=== PATIENT | female | born 1970 | race Two or more races ===

== ENCOUNTER 2020-03-14 12:47 | Outpatient (REF) | payer MEDICAID, SELFPAY ==
--- NOTE | 2020-03-14 | MM_ITS ---
EXAMINATION: BONE DENSITOMETRY CLINICAL INDICATION: Screening. COMPARISON: This is the patient's baseline examination. TECHNIQUE: Using a [employer] DXA System (software version: 13.1) manufactured by [employer], dual-energy x-ray absorptiometry was performed of the lumbar spine and right hip. History of left femur fracture. The images are of good technical quality. Summary results are attached. FINDINGS: AP SPINE L1-L4: BMD 1.375 g/cm2, Z-score 2.0, T-score 1.6, normal. RIGHT FEMUR, NECK: BMD 1.189 g/cm2, Z-score 1.8, T-score 1.1, normal. RIGHT FEMUR, TOTAL: BMD 1.136 g/cm2, Z-score 1.4, T-score 1.0, normal. IDENTIFIED RISK FACTORS: History of fracture (adult), tobacco use (current smoker). HISTORY OF FRACTURE: Femur. MEDICATIONS: None listed. MM/XR DEXA axial skeleton IMPRESSION: 1. DIAGNOSIS: Normal bone density based on the lowest T-score value of 1.0 in the total femur applying World Health Organization criteria. 2. 10-YEAR FRACTURE RISK PREDICTION, FRAX: Major osteoporotic fracture (clinical spine, forearm, hip or shoulder) 3.1%. Hip fracture 0.0%. 3. Treatment Recommendations: NOF guidelines recommend consideration for treatment in postmenopausal women and men age 50 and older presenting with the following: -A hip or vertebral (clinical or morphometric) fracture. -T-score less than or equal to -2.5 at the femoral neck or spine after appropriate evaluation to exclude secondary causes. -Low bone mass at the hip or spine and a 10-year fracture probability by FRAX of greater than or equal to 3% for hip fracture or greater than or equal to 20% for major osteoporotic fracture based on the [place] adapted WHO algorithm. 4. Other Recommendations: All treatment decisions require clinical judgment and consideration of individual patient factors, including patient preferences, comorbidities, previous drug use, risk factors not captured in the FRAX model (e.g. frailty, falls, vitamin D deficiency, increased bone turnover, interval significant decline in bone density) and possible under or overestimation of fracture risk by FRAX. FUTURE SCAN RECOMMENDATION: People with diagnosed cases of osteoporosis or at high risk for fracture should have regular bone mineral density tests. For patients eligible for Medicare, routine testing is allowed once every 2 years. The testing frequency can be increased to one year for patients who have rapidly progressing disease, those who are receiving or discontinuing medical therapy to restore bone mass, or have additional risk factors.
== END 2020-03-14 12:48 | disposition home or self-care (01) ==
LOC: HO.MAMMO 12:47
PROVIDERS: PCP Student in an Organized Health Care Education/Training Program; Visit Provider Student in an Organized Health Care Education/Training Program
DX: E55.9 Vitamin D deficiency, unspecified (principal)
CPT/HCPCS: 77080

== ENCOUNTER → 2020-04-03 14:33 | Outpatient (BNVA) | payer MEDICAID, SELFPAY | PROVIDERS: PCP Student in an Organized Health Care Education/Training Program; Visit Provider Surgery | DX: K64.4 Residual hemorrhoidal skin tags (principal); K64.8 Other hemorrhoids | CPT/HCPCS: 46600; 99202 ==

== ENCOUNTER 2020-05-09 11:24 | Day surgery (SDC) | payer MEDICAID, SELFPAY ==
[2020-05-01 13:20] VITALS: BMI 28.7
--- NOTE | 2020-05-07 09:50 | HO.ANESPROP2 ---
Documented by User: Rebecca Simmons 05/07/20 09:51 HPI - Anesthesia Eval Consult details Narrative: 50yo F for [facility] Past Medical History Medical History Anxiety Bleeding hemorrhoids Hx of emphysema Hypertension Family History Family History Mother History of lung cancer Maternal Uncle History of colon cancer Surgical History Surgical History History of section History of laparoscopic cholecystectomy Social History Social History (Updated 05/09/20 @ 12:25 by Traci Garcia) Alcohol intake: current Alcohol intake frequency: holidays/special occasions only Smoking Status: Current every day smoker Second Hand Smoke Exposure: No Use of substances other than those prescribed or required for medical reasons: Yes Substance Use Type: Marijuana Advance Directives: No Advance Directives Information Provided: No Advance Directives on File: No Meds Allergies Allergy/AdvReac Type Severity Reaction Status Date / Time No Known Allergies Allergy Verified 05/09/20 11:37 Home Medications Medication Instructions Recorded Confirmed Type fluoxetine 40 mg capsule 40 mg PO BID 04/03/20 History lamotrigine 100 mg tablet 100 mg PO BID 04/03/20 History lisinopril 10 mg tablet 10 mg PO DAILY 04/03/20 History Exam Exam Date and Time: May 07, 2020 0950 Height,Weight and Vital Signs: Height 5 ft Weight 66.678 kg Assessment and Plan Assessment Anesthesia Assessment: Chart Reviewed Documented by User: Traci Garcia 05/09/20 12:26 PMFSH Past Medical History Medical History Anxiety Bleeding hemorrhoids Hx of emphysema Hypertension Family History Family History Mother History of lung cancer Maternal Uncle History of colon cancer Surgical History Surgical History History of section History of laparoscopic cholecystectomy Social History Social History (Updated 05/09/20 @ 12:25 by Traci Garcia) Alcohol intake: current Alcohol intake frequency: holidays/special occasions only Smoking Status: Current every day smoker Second Hand Smoke Exposure: No Use of substances other than those prescribed or required for medical reasons: Yes Substance Use Type: Marijuana Advance Directives: No Advance Directives Information Provided: No Advance Directives on File: No Meds Allergies Allergy/AdvReac Type Severity Reaction Status Date / Time No Known Allergies Allergy Verified 05/09/20 11:37 Home Medications Medication Instructions Recorded Confirmed Type fluoxetine 40 mg capsule 40 mg PO BID 04/03/20 History lamotrigine 100 mg tablet 100 mg PO BID 04/03/20 History lisinopril 10 mg tablet 10 mg PO DAILY 04/03/20 History Exam Airway Mallampati Class: II TM Dist: >3cm Neck ROM: Full Partial: Upper and Lower Heart: RRR Lungs: CTA Assessment and Plan Assessment Anesthesia Assessment: Anesthesia Plan Discussed and Chart Reviewed Final Anesthetic Review NPO: Yes ASA Class: II Final Preanesthetic Review: Meds/Allgs Chart Reviewed, Consent Obtained/Reviewed and Anes Risks/Benef Reviewed Patient Risk: Intermediate Procedure Risk: Intermediate Anesthetic Plan Anesthetic Plan: GA Disposition: Standard PACU
[2020-05-08 09:20] VITALS: BMI 28.7
[2020-05-09] VITALS (11 sets, daily range): BP systolic 141–160; BP diastolic 78–105; PULSE 77–101; RESP 16–20; TEMP 36.1–36.6; O2SAT 97–100
[2020-05-09] MEDS: Lactated Ringers 1,000 ML 100 ML IVCONT (11:55)
--- NOTE | 2020-05-09 12:12 | MHC.SHP ---
Pre-Procedural Eval Section B Chief Complaint: Bleeding hemorrhoids Details of Present Illness: has pain and prolpase with hemorrhoids Relevant Family History (Specify if Yes): No Relevant Social History: None Present Medications: see Short Stay Collaborative assessment Medical History: Significant History (HTN, anxiety) History of Previous Operations: No relevant previous surgery Allergies: Allergies Allergy/AdvReac Type Severity Reaction Status Date / Time No Known Allergies Allergy Verified 05/09/20 11:37 Review of Systems Sugical H&P ROS: Negative: Constitution, Cardiovascular, Respiratory, Neurological, Psychiatric, Hem-Onc, Allergic/Immunologic, Gastrointestinal, Genitourinary, Musculoskeletal, Integumentary, Endocrine and Eyes/Ears/Nose/Throat Exam Surgical H&P Exam: Normal: HEENT, Normal: Heart, Normal: Lungs, Normal: Extremities, Normal: Abdomen, Normal: Skin and Normal: Neurological Plan Diagnosis/Plan: Unchanged I have reviewed the history and physical and performed a pertinent physical examination on my patient. No changes have occurred unless specified.
--- NOTE | 2020-05-09 13:21 | PM.OP ---
Brief Operative Note Date of Service: 05/09/20 Pre-op diagnosis: internal and external hemorrhoids with bleeding and prolapse Post-op diagnosis: same Procedure: EUA, hemorrhoidectomyx 3 Surgeon: Anthony Callahan MD Anesthesia: GLMA Estimated blood loss (mL): 10 Pathology: other (hemorrhoids) Condition: stable Disposition: PACU
[2020-05-09] MEDS: fentaNYL citrate/PF 100 MCG/2 ML VIAL 25 MCG IVPUSH ×3 (13:51→14:03)
--- NOTE | 2020-05-09 14:40 | HO.POSTANES ---
Post Anesthesia Evaluation Post Anesthesia Evaluation Vital Signs: Vital Signs Temp Pulse Resp BP Pulse Ox 05/09/20 14:23 77 18 158/94 H 99 05/09/20 14:08 78 16 154/78 H 97 05/09/20 14:03 78 16 160/85 H 97 05/09/20 13:58 16 05/09/20 13:56 86 20 150/86 H 97 05/09/20 13:51 85 20 150/89 H 97 05/09/20 13:44 88 20 141/90 H 100 05/09/20 13:39 88 20 143/88 H 100 05/09/20 13:34 90 20 157/102 H 100 05/09/20 13:29 97 F 101 H 16 158/105 H 100 05/09/20 11:44 97.9 F 82 16 157/89 H 98 Anesthesia: General Endotracheal-GETA Mental Status: Awake Pain Control: Satisfactory Nausea/Vomiting: None Hydration: Adequate Anesthesia-Related Issues: No Anes. Related Issues
--- NOTE | 2020-05-09 20:25 | OP_ITS ---
SURGEON: Anthony Callahan MD INDICATIONS: The patient is a 50-year-old female, who has had chronic problems with hemorrhoids. She describes an uncomfortable prolapse, periodic swelling and bleeding. She was seen in the office, had multiple hemorrhoidal columns on both the left and right side, mix of internal and external. She wanted to proceed with hemorrhoidectomy. She was aware of the risks, benefits, and alternatives. PREOPERATIVE DIAGNOSIS: Internal and external hemorrhoids with prolapse and bleeding. POSTOPERATIVE DIAGNOSIS: Internal and external hemorrhoids with prolapse and bleeding. PROCEDURE PERFORMED: Exam under anesthesia, hemorrhoidectomy x3 columns. ESTIMATED BLOOD LOSS: COMPLICATIONS: ANESTHESIA: ASSISTANTS: SPECIMENS: DESCRIPTION OF PROCEDURE: She was brought to the operating room ad placed in prone vicente-knife position under general anesthesia via endotracheal tube. The perianal area was prepped and draped in the usual sterile fashion. A surgical time-out was done. The patient received Cefotan 2 g IV preoperatively. Examination of the anal orifice revealed external hemorrhoidal columns on both the left and right side. I inserted the Odell-Joshi retractor and examined the anal canal circumferentially. Again, mix of internal and external hemorrhoidal columns were noted. There were about 3 of these columns that were most prominent. With Odell-Josih retractor in place, I proceeded to apply a Dan grasper at the largest hemorrhoidal column on the right side. I made a yziror-xh-kvrjb stitch at the pedicle using chromic 3-0 and made an incision around this hemorrhoidal column to the perianal skin using a blade #15. I excised the hemorrhoidal column above the plane of sphincters using scissors all the way to the pedicle and I closed the incision with running chromic 3-0 stitch. Additional ikrzop-gc-gtvtj hemostatic sutures were placed. Second hemorrhoidal column was removed on the same side in the same manner. There was another hemorrhoidal column on the left side and I proceeded to place a Dan grasper on this to retract this. I made a nlxnql-sa-ucofn stitch at the pedicle using chromic 3-0 stitch and made incision around this hemorrhoidal column of the perianal skin using blade #15. I excised this hemorrhoidal column above the plane of sphincters using Metzenbaum scissors and I closed this incision with running chromic 3-0 stitch. There were 3 hemorrhoidal columns removed. I proceeded to reinforce the oozing areas in each incision with plxekp-lr-ohwlg sutures. We observed for hemostasis. Once hemostasis was ensured, proceeded to then infiltrate the perianal area with Marcaine 0.5% for postop analgesia. Examination of the rest of the anal canal did not reveal any pathology.There were no fissures seen. Odell-Joshi retractor was removed. The patient had good hemostasis. The procedure was then completed. The patient tolerated the procedure well. There were no complications noted. Initial and final counts of sponges and instruments were correct. Estimated blood loss was about 15 mL. The patient was extubated without difficulty and transferred to the recovery room with stable vital signs. MD JAVIER Thornton/CLEMENTE / [id number] MTDD
== END 2020-05-09 14:49 | disposition home or self-care (01) ==
PROVIDERS: PCP Student in an Organized Health Care Education/Training Program; Visit Provider Surgery
PROC: (CPT 46260; principal; 2020-05-09 13:20)
DX: K64.8 Other hemorrhoids (principal); K64.4 Residual hemorrhoidal skin tags; I10 Essential (primary) hypertension; F41.9 Anxiety disorder, unspecified; Z90.49 Acquired absence of other specified parts of digestive tract; F12.90 Cannabis use, unspecified, uncomplicated; Z79.899 Other long term (current) drug therapy
CPT/HCPCS: 46260; 88304; J1100; J2250; J2405; J3010

== ENCOUNTER → 2020-05-22 11:46 | Outpatient (BNVA) | payer MEDICAID, SELFPAY | PROVIDERS: PCP Student in an Organized Health Care Education/Training Program; Referring Provider Student in an Organized Health Care Education/Training Program; Visit Provider Surgery | DX: K64.9 Unspecified hemorrhoids (principal) | CPT/HCPCS: 99212 ==

== ENCOUNTER → 2020-06-26 10:50 | Outpatient (BNVA) | payer MEDICAID, SELFPAY | PROVIDERS: PCP Student in an Organized Health Care Education/Training Program; Visit Provider Surgery | DX: K64.9 Unspecified hemorrhoids (principal) | CPT/HCPCS: 46600; 99212 ==

== ENCOUNTER 2020-10-21 09:50 | Outpatient (REF) | payer MEDICAID, SELFPAY ==
--- NOTE | ~2020-10-21 | XR_ITS ---
EXAMINATION: XR SHOULDER, RIGHT CLINICAL INFORMATION: Right shoulder pain COMPARISON: CT chest 11/21/2019, chest radiograph 09/25/2019 TECHNIQUE: Right shoulder is imaged in 4 views. FINDINGS: There is no fracture, dislocation, destructive process. The glenohumeral joint and acromioclavicular joints are unremarkable. No erosive change. There is bulky calcific tendinosis in region of distal superior rotator cuff. Bony mineralization is normal. There are calcified granulomata are again seen in the right lung. XR/XR shoulder RT min 2V IMPRESSION: Calcific tendinosis distal superior rotator cuff.
== END 2020-10-21 09:51 | disposition home or self-care (01) ==
LOC: HO.XRAY 09:50
PROVIDERS: Absent Provider Student in an Organized Health Care Education/Training Program; PCP Student in an Organized Health Care Education/Training Program; Visit Provider Emergency Medicine
DX: M25.511 Pain in right shoulder (principal)
CPT/HCPCS: 73030

== ENCOUNTER → 2021-04-16 09:51 | Outpatient (BNVA) | payer MEDICAID, SELFPAY | PROVIDERS: PCP Student in an Organized Health Care Education/Training Program; Visit Provider Internal Medicine Pulmonary Disease | DX: J44.9 Chronic obstructive pulmonary disease, unspecified (principal); R91.8 Other nonspecific abnormal finding of lung field | CPT/HCPCS: 99202 ==

== ENCOUNTER 2021-05-04 09:55 | Outpatient (REF) | payer MEDICAID, SELFPAY ==
--- NOTE | 2021-05-04 17:22 | PFT_ITS ---
Forced vital capacity normal. FEV1 is moderately decreased. [id number] is markedly decreased. After bronchodilator therapy, there is a significant improvement in FVC, FEV1, and [id number]. Total lung capacity normal. Residual volume moderately increased. Diffusion capacity normal. CONCLUSION: 1. Moderately severe obstructive airway disorder. 2. Almost complete reversibility after bronchodilator therapy is noted. 3. These findings are consistent with bronchial asthma. 4. Clinical correlation recommended. MD BLANCA Veloz/CLEMENTE / [id number]
== END 2021-05-04 09:56 | disposition home or self-care (01) ==
LOC: HO.RESP 09:55
PROVIDERS: PCP Student in an Organized Health Care Education/Training Program; Visit Provider Internal Medicine Pulmonary Disease
DX: J44.9 Chronic obstructive pulmonary disease, unspecified (principal)
CPT/HCPCS: 94060; 94727; 94729

== ENCOUNTER 2021-05-08 10:00 | Outpatient (REF) | payer MEDICAID, SELFPAY ==
--- NOTE | ~2021-05-08 | CT_ITS ---
EXAMINATION: CT CHEST WITHOUT CONTRAST CLINICAL INFORMATION: Pulmonary nodule follow-up COMPARISON: Chest CT 11/21/2019 TECHNIQUE: Multidetector volumetric CT imaging of the chest was done. Axial MIP volume rendering provided. Sagittal and coronal reformatted images were obtained. This CT examination was performed using dose optimization techniques as appropriate, variously including the following: *Automated exposure control *Adjustment of mA and/or kV according to patient size (this includes techniques or standardized protocols for targeted exams where dose is matched to indication/reason for exam; i.e. extremities or head) *Use of iterative reconstruction technique DLP: 126 mGy-cm FINDINGS: The heart is normal in size. There is no pericardial effusion. Normal caliber thoracic aorta. No gross mediastinal lymphadenopathy. No enlarged axillary lymph nodes. Central airways are patent. Lungs are well aerated. There is no lobar consolidation. No pleural effusion or pneumothorax. A few subcentimeter calcified and noncalcified pulmonary nodules appear stable. No new suspicious pulmonary nodules visualized. Visualized portion of the upper abdomen are grossly unremarkable. Small splenule is again noted. Mild degenerative changes of the spine. CT/CT chest wo con IMPRESSION: A few subcentimeter calcified and noncalcified pulmonary nodules appear stable. No new suspicious pulmonary nodules visualized. Fleischner guidelines were followed.
== END 2021-05-08 10:01 | disposition home or self-care (01) ==
LOC: HO.CT 10:00
PROVIDERS: Visit Provider Internal Medicine Pulmonary Disease
DX: R91.8 Other nonspecific abnormal finding of lung field (principal)
CPT/HCPCS: 71250

== ENCOUNTER → 2021-05-13 10:58 | Outpatient (BNVA) | payer MEDICAID, SELFPAY | PROVIDERS: PCP Student in an Organized Health Care Education/Training Program; Visit Provider Internal Medicine Pulmonary Disease | DX: J44.9 Chronic obstructive pulmonary disease, unspecified (principal); R91.8 Other nonspecific abnormal finding of lung field; Z87.891 Personal history of nicotine dependence; Z80.1 Family history of malignant neoplasm of trachea, bronchus and lung | CPT/HCPCS: 99212 ==

== ENCOUNTER 2021-09-18 10:54 | Outpatient (REF) | payer MEDICAID, SELFPAY ==
--- NOTE | ~2021-09-18 | MM_ITS ---
EXAMINATION: MM SCREENING DIGITAL BREAST TOMOSYNTHESIS, BILATERAL CLINICAL INFORMATION: Screening. Asymptomatic. The lifetime risk of breast cancer based on the Tyrer-Cuzick Model is 6%. COMPARISON: Mammography: 03/03/2018, 02/11/2017, 01/12/2016 (diagnostic). TECHNIQUE: Digital breast tomosynthesis is performed in both the craniocaudal and mediolateral oblique views along with computer-aided detection (CAD). Synthesized 2D images are generated from the tomosynthesis. FINDINGS: There are scattered areas of fibroglandular density (ACR BI-RADS breast composition Category b). Parenchymal pattern is similar to prior exams and there is no interval mass or architectural abnormality or developing density. The axilla and skin contours are unremarkable. Right breast has scattered calcifications increased from prior exams without focal grouping or ductal distribution. Left breast has scattered similar appearing increased calcifications with some questionable scattered grouping. Patient will be recalled for additional magnification views to fully characterize the calcifications. MM/MM tomosynthesis screening BI IMPRESSION: -No mass or architectural abnormality or developing density. -Bilateral increased calcifications, likely scattered on right and possibly with scattered grouping on left. ASSESSMENT: BI-RADS 0: Incomplete - Need Additional Imaging Evaluation RECOMMENDATION: 1. Additional views of the bilateral breasts (magnification CC, magnification ML). 2. Radiology department staff will contact the patient for additional imaging. This patient's information was entered into a reminder system with a target due date for their next mammogram.
== END 2021-09-18 10:55 | disposition home or self-care (01) ==
LOC: HO.MAMMO 10:54
PROVIDERS: PCP Student in an Organized Health Care Education/Training Program; Visit Provider Student in an Organized Health Care Education/Training Program
DX: Z12.31 Encounter for screening mammogram for malignant neoplasm of breast (principal)
CPT/HCPCS: 77063; 77067

== ENCOUNTER 2021-10-02 12:59 | Outpatient (REF) | payer MEDICAID, SELFPAY ==
--- NOTE | ~2021-10-02 | MM_ITS ---
EXAMINATION: MM DIAGNOSTIC DIGITAL MAMMOGRAPHY, BILATERAL CLINICAL INFORMATION: Recall from screening for bilateral increased calcifications, greater on left. COMPARISON: Mammography: 09/18/2021,03/03/2018, 02/11/2017, 01/12/2016 (diagnostic). TECHNIQUE: Digital mammography is performed in the following views: Left CC x2, left ML x2, right CC, right ML. FINDINGS: There are scattered areas of fibroglandular density (ACR BI-RADS breast composition Category b). There are numerous bilateral round calcifications, some in small groups on left. There are a few that are layering on the MLO views. The majority are not layering. There are no focal pleomorphic types or ductal distribution. Given the bilateral similar appearance, they are likely benign and short interval follow-up to include magnification views is recommended. Results are discussed with the patient at time of visit. MM/MM added views BI IMPRESSION: Numerous bilateral probable benign calcifications, greater in number on left. ASSESSMENT: BI-RADS 3: Probably Benign RECOMMENDATION: Diagnostic bilateral mammography in 6 months. This patient's information was entered into a reminder system with a target due date for their next mammogram.
== END 2021-10-02 13:00 | disposition home or self-care (01) ==
LOC: HO.MAMMO 12:59
PROVIDERS: PCP Student in an Organized Health Care Education/Training Program; Visit Provider Student in an Organized Health Care Education/Training Program
DX: R92.1 Mammographic calcification found on diagnostic imaging of breast (principal)
CPT/HCPCS: 77066

== ENCOUNTER → 2022-02-25 10:32 | Outpatient (BNVA) | payer MEDICAID, SELFPAY | PROVIDERS: PCP Student in an Organized Health Care Education/Training Program; Visit Provider Internal Medicine Pulmonary Disease | DX: J44.9 Chronic obstructive pulmonary disease, unspecified (principal); R91.8 Other nonspecific abnormal finding of lung field; Z79.899 Other long term (current) drug therapy | CPT/HCPCS: 99212 ==

== ENCOUNTER 2022-04-16 13:14 | Outpatient (REF) | payer MEDICAID, SELFPAY ==
--- NOTE | ~2022-04-16 | MM_ITS ---
EXAMINATION: MM DIAGNOSTIC DIGITAL BREAST TOMOSYNTHESIS, BILATERAL CLINICAL INFORMATION: Six-month followup bilateral calcifications. COMPARISON: Mammography: 10/02/2021 and studies dating back to 01/12/2016. TECHNIQUE: Digital breast tomosynthesis is performed in both the craniocaudal and mediolateral oblique views along with computer-aided detection (CAD). Synthesized 2D images are generated from the tomosynthesis. Additional spot magnification views of the breasts bilaterally in craniocaudal and 90 degree mediolateral views. Spot compression left mediolateral oblique view. FINDINGS: The breasts are heterogeneously dense, which may obscure small masses (ACR BI-RADS breast composition Category c). There is again noted to be multiplicity and bilaterality of scattered and grouped calcifications. No definite aggressive changes are seen compared to study of 10/02/2021 of the calcifications. Within the superior aspect of the right breast approximately 6 cm from the nipple, there is a partially circumscribed density measuring 8 x 7 mm in size for which ultrasound evaluation is recommended. Within the anterior inferior aspect of the left breast there is a partially circumscribed density which is persistent on spot compression view and for which ultrasound is recommended. There are some other nodular densities present scattered within both breasts. Results are provided to the patient at time of visit by the technologist. MM/MM tomosynthesis diagnostic BI IMPRESSION: No significant suspicious change in bilateral breast calcifications. Bilateral breast densities for which ultrasound is recommended. ASSESSMENT: BI-RADS 0: Incomplete - Need Additional Imaging Evaluation RECOMMENDATION: Bilateral breast ultrasound.
== END 2022-04-16 13:15 | disposition home or self-care (01) ==
LOC: HO.MAMMO 13:14
PROVIDERS: Visit Provider Student in an Organized Health Care Education/Training Program
DX: R92.1 Mammographic calcification found on diagnostic imaging of breast (principal)
CPT/HCPCS: 77062; 77066

== ENCOUNTER 2022-04-23 14:36 | Outpatient (REF) | payer MEDICAID, SELFPAY ==
--- NOTE | ~2022-04-23 | US_ITS ---
EXAMINATION: US DIAGNOSTIC ULTRASOUND BREAST, BILATERAL CLINICAL INFORMATION: Bilateral breast densities. COMPARISON: Mammography of 04/16/2022 and studies dating back to 12/07/2013. TECHNIQUE: Ultrasound of the breast is performed with real-time augustin scale imaging and color Doppler. FINDINGS: RIGHT BREAST: At the 12 o'clock position, approximately 3 cm from the nipple, there is a 4 mm anterior echogenic and posterior hypoechoic structure with strong posterior sound shadowing corresponding to a calculus which is seen on a mammogram. Adjacent to this there appears to be a mildly complex cyst. At the 11 o'clock position, approximately 2 cm from the nipple, there is a 3 mm cyst. LEFT BREAST: An approximately the 5 o'clock position, 2 cm from the nipple, there is a hypoechoic structure measuring 8 x 8 x 9 mm which is circumscribed with increased through sound transmission and no distal sound shadowing. There is no internal vascularity and the lesion is wider than it is tall. This likely represents either fibroadenoma or complex cyst. Results are discussed with the patient at time of visit. US/US breast RT limited IMPRESSION: Bilateral ultrasound findings as described above for which 6 month bilateral ultrasound follow up is recommended. ASSESSMENT: BI-RADS 3: Probably benign. RECOMMENDATION: Diagnostic mammography in 6 months. This patient's information was entered into a reminder system with a target due date for their next mammogram.
--- NOTE | ~2022-04-23 | US_ITS ---
EXAMINATION: US DIAGNOSTIC ULTRASOUND BREAST, BILATERAL CLINICAL INFORMATION: Bilateral breast densities. COMPARISON: Mammography of 04/16/2022 and studies dating back to 12/07/2013. TECHNIQUE: Ultrasound of the breast is performed with real-time augustin scale imaging and color Doppler. FINDINGS: RIGHT BREAST: At the 12 o'clock position, approximately 3 cm from the nipple, there is a 4 mm anterior echogenic and posterior hypoechoic structure with strong posterior sound shadowing corresponding to a calculus which is seen on a mammogram. Adjacent to this there appears to be a mildly complex cyst. At the 11 o'clock position, approximately 2 cm from the nipple, there is a 3 mm cyst. LEFT BREAST: An approximately the 5 o'clock position, 2 cm from the nipple, there is a hypoechoic structure measuring 8 x 8 x 9 mm which is circumscribed with increased through sound transmission and no distal sound shadowing. There is no internal vascularity and the lesion is wider than it is tall. This likely represents either fibroadenoma or complex cyst. Results are discussed with the patient at time of visit. US/US breast LT limited IMPRESSION: Bilateral ultrasound findings as described above for which 6 month bilateral ultrasound follow up is recommended. ASSESSMENT: BI-RADS 3: Probably benign. RECOMMENDATION: Diagnostic mammography in 6 months. This patient's information was entered into a reminder system with a target due date for their next mammogram.
== END 2022-04-23 14:37 | disposition home or self-care (01) ==
LOC: HO.MAMMO 14:36
PROVIDERS: PCP Student in an Organized Health Care Education/Training Program; Visit Provider Student in an Organized Health Care Education/Training Program
DX: R92.2 Inconclusive mammogram (principal)
CPT/HCPCS: 76642

== ENCOUNTER 2022-05-31 10:00 | Outpatient (REF) | payer MEDICAID, SELFPAY ==
--- NOTE | ~2022-05-31 | CT_ITS ---
EXAMINATION: CT CHEST WITHOUT CONTRAST CLINICAL INFORMATION: Abnormal finding of the lungs. COMPARISON: 05/08/2021 TECHNIQUE: Multidetector volumetric CT imaging of the chest was done. Axial MIP volume rendering provided. Sagittal and coronal reformatted images were obtained. This CT examination was performed using dose optimization techniques as appropriate, variously including the following: *Automated exposure control *Adjustment of mA and/or kV according to patient size (this includes techniques or standardized protocols for targeted exams where dose is matched to indication/reason for exam; i.e. extremities or head) *Use of iterative reconstruction technique DLP: 110 mGy-cm FINDINGS: LUNGS: The central airways are patent. There is some mild bilateral bronchial wall thickening present. No bronchiectasis is seen. No confluent parenchymal disease is noted. No significant changes of emphysema are appreciated. There are a few small regions of ground-glass opacity seen dependently within the lower lobes bilaterally most likely related to atelectasis. There is some scarring noted within the lingula. There are multiple bilateral sub-4 mm densities present. There are a few calcified granulomas seen within the right lower lobe. No suspicious lung masses are appreciated. There are a few small scattered regions of ground-glass opacity which are nonspecific. MEDIASTINUM: The visualized thyroid gland appears unremarkable. Heart normal size. No pericardial effusion. No thoracic aortic aneurysm. No definite mediastinal or hilar lymphadenopathy is appreciated with a few prominent aortopulmonic window and precarinal lymph nodes present but not pathologically enlarged. CORONARY ARTERY CALCIFICATION: Trace involving the proximal left circumflex artery. PLEURA: There is no pleural effusion. No pleural mass or thickening. AXILLA: No lymphadenopathy. UPPER ABDOMEN: There are a few calcified granulomas seen within the liver and spleen. OSSEOUS STRUCTURES: No suspicious destructive bony lesions identified. CT/CT chest wo IV con IMPRESSION: Old granulomatous disease. No suspicious lung nodules identified. Sub-4 mm nodules present. Some mild bronchial wall thickening which may be related to reactive airways disease or acute or chronic bronchitis of other etiology. According to the UPDATED 2017 Fleischner Society recommendations, the advised followup imaging for solid nodules < 6 mm is: LOW RISK PATIENT: No routine follow up. HIGH RISK PATIENT: Optional CT at 12 months.
== END 2022-05-31 10:01 | disposition home or self-care (01) ==
LOC: HO.CT 10:00
PROVIDERS: PCP Student in an Organized Health Care Education/Training Program; Visit Provider Internal Medicine Pulmonary Disease
DX: R91.8 Other nonspecific abnormal finding of lung field (principal)
CPT/HCPCS: 71250

== ENCOUNTER → 2022-10-01 09:38 | Outpatient (BNVA) | payer MEDICAID, SELFPAY | PROVIDERS: PCP Student in an Organized Health Care Education/Training Program; Visit Provider Nurse Practitioner Family | DX: J44.9 Chronic obstructive pulmonary disease, unspecified (principal); R91.8 Other nonspecific abnormal finding of lung field | CPT/HCPCS: 99212 ==

== ENCOUNTER 2022-11-08 18:56 | Outpatient (REF) | payer MEDICAID, SELFPAY | END 2022-11-08 18:57 | disposition home or self-care (01) | LOC: HO.HHCLNP 18:56 | PROVIDERS: Visit Provider Internal Medicine | DX: R07.0 Pain in throat (principal) | CPT/HCPCS: 87070; 87147 ==

== ENCOUNTER 2022-12-15 14:42 | Outpatient (REF) | payer MEDICAID, SELFPAY ==
--- NOTE | ~2022-12-15 | US_ITS ---
EXAMINATION: US DIAGNOSTIC ULTRASOUND BREAST, BILATERAL CLINICAL INFORMATION: Follow-up bilateral breast masses versus complicated cysts. COMPARISON: Mammography of 04/23/2022 and studies dating back to 12/07/2013. Bilateral breast ultrasound dated 04/23/2022. TECHNIQUE: Ultrasound of the breast is performed with real-time augustin scale imaging and color Doppler. FINDINGS: RIGHT BREAST: Despite attempts, no cystic or solid abnormalities could be detected within the anterior or mid right breast. Only normal fibroglandular breast parenchyma could be identified. No definite ultrasound correlate to the oval 7 mm low density mass seen in the mid posterior right breast along the nipple line on mammography dated 04/16/2022.. This is likely located in the 12-1 o'clock axis. LEFT BREAST: At approximately the 5 o'clock position, 2 cm from the nipple, there is a round hypoechoic structure measuring 7 x 8 x 7 mm (previously 9 x 9 x 8 mm) which is circumscribed with increased through sound transmission and no distal sound attenuation. There is no internal vascularity and the lesion is wider than it is tall. This likely represents either a round fibroadenoma or mildly complicated cyst. This remains probably benign, and 6 month interval follow-up targeted left breast ultrasound recommended to ensure stability. Results were discussed with the patient at time of visit. US/US breast BI limited mamm only IMPRESSION: Left breast 5:00 ultrasound findings as described above for which 6 month left ultrasound follow up is recommended. No right breast abnormality or correlate to the low density circumscribed 7 mm mass at the 12-1 o'clock axis. Recommend six-month interval follow-up right breast mammography, to include spot compression 3-D MLO view, as well as 90 degree right ML view. At that time patient will be due for bilateral screening exam. ASSESSMENT: BI-RADS 3: Probably benign. RECOMMENDATION: Diagnostic left ultrasound and right mammography in 6 months. This patient's information was entered into a reminder system with a target due date for their next mammogram.
== END 2022-12-15 14:43 | disposition home or self-care (01) ==
LOC: HO.MAMMO 14:42
PROVIDERS: PCP Student in an Organized Health Care Education/Training Program; Visit Provider Student in an Organized Health Care Education/Training Program
DX: R92.2 Inconclusive mammogram (principal)
CPT/HCPCS: 76642

== ENCOUNTER → 2022-12-15 15:00 | Outpatient (BNV) | payer MEDICAID, SELFPAY | PROVIDERS: PCP Student in an Organized Health Care Education/Training Program; Visit Provider Radiology Diagnostic Radiology | DX: N63.0 Unspecified lump in unspecified breast (principal) | CPT/HCPCS: 76642 ==

== ENCOUNTER 2023-02-04 11:26 | Outpatient (REF) | payer MEDICAID, SELFPAY ==
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
== END 2023-02-04 11:27 | disposition home or self-care (01) ==
LOC: HO.XRAY 11:26
PROVIDERS: Visit Provider Internal Medicine
DX: M79.652 Pain in left thigh (principal)
CPT/HCPCS: 73552

== ENCOUNTER 2023-07-07 12:32 | Outpatient (REF) | payer MEDICAID, SELFPAY ==
--- NOTE | ~2023-07-07 | US_ITS ---
EXAMINATION: MM DIAGNOSTIC DIGITAL BREAST TOMOSYNTHESIS, BILATERAL US BREAST LIMITED, LEFT MAMMOGRAPHY: CLINICAL INFORMATION: -6 month Follow-up left breast complicated cyst 5:00 axis measuring 7 x 8 x 7 mm. -6 month Follow-up right breast oval possible 7 mm low-density circumscribed mass seen mid posterior along the nipple line, with no previous ultrasound correlate seen. COMPARISON: Mammography of 04/16/2022, and studies dating back to 12/07/2013. Bilateral breast ultrasound dated 12/15/2022, and 04/23/2022. TECHNIQUE: Digital breast tomosynthesis is performed in both the craniocaudal and mediolateral oblique views along with computer-aided detection (CAD). Synthesized 2D images are generated from the tomosynthesis. FINDINGS: The breasts are heterogeneously dense, which may obscure small masses (ACR BI-RADS breast composition Category c). The previously seen oval 7 mm circumscribed mass right breast along the nipple line mid to posterior one third does not definitively persist on today's right mammography or spot compression exam. This is most likely a benign island of normal breast tissue. There are stable benign appearing scattered calcifications in both breasts. No suspicious grouping. There is a similar appearing oval circumscribed mass in the left breast at the 5:30 axis, anterior one third, correlating with the previously seen complicated cyst on ultrasound. This will be reevaluated on ultrasound today. Otherwise, no suspicious masses, suspicious grouped calcifications, or regions of architectural distortion are identified in either breast. There are no skin or definitive axillary abnormalities. ULTRASOUND: CLINICAL INFORMATION: Evaluate stability of complicated cyst 5:00 axis left breast measuring 7 x 8 x 7 mm. COMPARISON: 12/15/2022, and 04/23/2022. TECHNIQUE: Targeted left sonographic evaluation was performed using a high frequency linear transducer. Left breast was evaluated from the 4:00 to 7:00 axes. Selected archived documentation. FINDINGS: LEFT BREAST: -At the 5:00 axis, 2 cm from the nipple, there is a slightly smaller complicated cyst with good through transmission, circumscribed, measuring 6 x 6 x 6 mm, previously 7 x 8 x 7 mm 12/15/2022. No internal color Doppler vascular flow or other suspicious abnormalities. This finding is benign. No further follow-up recommended. No additional abnormalities seen in the left breast on ultrasound in the area scanned 4:00 to 7:00. US/US breast LT limited mamm only IMPRESSION: There are no findings suspicious for malignancy in either breast. There are stable benign findings. There is continued size decrease in the mildly complicated cyst in the left breast at the 5:00 axis as described. This finding is benign, and no further follow-up is recommended. Today's examination shows no persisting right breast oval mass previously suspected along the nipple line right MLO projection, with no prior ultrasound correlate. This is most likely a normal island of overlapping breast parenchyma (summation artifact). No further follow-up suggested. Recommend the patient return to routine annual screening in one year. OVERALL ASSESSMENT: Mammography: BI-RADS 2 - Benign Findings Ultrasound: BI-RADS 2 - Benign Findings RECOMMENDATION: 1 year F/U This patient's information was entered into a reminder system with a target due date for their next mammogram.
== END 2023-07-07 12:33 | disposition home or self-care (01) ==
LOC: HO.MAMMO 12:32
PROVIDERS: PCP Student in an Organized Health Care Education/Training Program; Visit Provider Student in an Organized Health Care Education/Training Program
DX: R92.2 Inconclusive mammogram (principal)
CPT/HCPCS: 76642; 77062; 77066

== ENCOUNTER → 2023-07-07 13:00 | Outpatient (BNV) | payer MEDICAID, SELFPAY | PROVIDERS: PCP Student in an Organized Health Care Education/Training Program; Visit Provider Radiology Diagnostic Radiology | DX: N60.02 Solitary cyst of left breast (principal); R92.1 Mammographic calcification found on diagnostic imaging of breast; R92.333 Mammographic heterogeneous density, bilateral breasts | CPT/HCPCS: 76642; 77062; 77066 ==

== ENCOUNTER 2023-08-09 09:43 | Outpatient (REF) | payer MEDICAID, SELFPAY ==
[2023-08-09 14:50] LABS: Alanine Aminotransferase 17 U/L (0-31); Albumin Level 3.8 g/dL (3.5-5.0); Alkaline Phosphatase 88 U/L (39-117); Anion Gap 13 (12-20); Aspartate Amino Transferase 23 U/L (5-31); Bilirubin Direct 0.1 mg/dL (0.0-0.5); Bilirubin Total 0.3 mg/dL (0.0-1.0); Blood Urea Nitrogen 9 mg/dL (9-16); Calcium 9.1 mg/dL (8.4-10.2); Carbon Dioxide 27 mmol/L (22-29); Chloride 106 mmol/L (96-108); Cholesterol 158 mg/dL (<200); Estimated Glomerular Filt Rate > 60; Glucose Random 83 mg/dL (60-115); HDL Cholesterol 56 mg/dL (>40); LDL Cholesterol Calculated 83 mg/dL (<100); Potassium 3.7 mmol/L (3.3-5.1); Sodium 142 mmol/L (135-145); Total Protein 7.3 g/dL (6.5-8.0); Triglycerides 97 mg/dL (<150)
== END 2023-08-09 09:44 | disposition home or self-care (01) ==
LOC: HO.CHCLDS 09:43
PROVIDERS: Visit Provider Student in an Organized Health Care Education/Training Program
DX: I10 Essential (primary) hypertension (principal)
CPT/HCPCS: 36415; 80048; 80061; 80076

== ENCOUNTER 2023-08-12 06:21 | Outpatient (REF) | payer MEDICAID, SELFPAY ==
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
== END 2023-08-12 06:22 | disposition home or self-care (01) ==
LOC: HO.HOSX 06:21
PROVIDERS: Visit Provider Physician Assistant
DX: M76.32 Iliotibial band syndrome, left leg (principal); S80.02XA Contusion of left knee, initial encounter
CPT/HCPCS: 73562; 99212

== ENCOUNTER 2023-08-12 10:00 | Outpatient (AMB) | payer MEDICAID, SELFPAY ==
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
[2023-08-12 10:26] VITALS: BMI 25.0
== END 2023-08-12 10:42 | disposition home or self-care (01) ==
PROVIDERS: PCP Student in an Organized Health Care Education/Training Program; Visit Provider Physician Assistant
DX: M76.32 Iliotibial band syndrome, left leg (principal); S80.02XA Contusion of left knee, initial encounter
CPT/HCPCS: 99204

== ENCOUNTER 2023-09-08 11:13 | Outpatient (REF) | payer MEDICAID, SELFPAY ==
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
== END 2023-09-08 11:14 | disposition home or self-care (01) ==
LOC: HO.XRAY 11:13
PROVIDERS: PCP Student in an Organized Health Care Education/Training Program; Visit Provider Internal Medicine
DX: R10.9 Unspecified abdominal pain (principal)
CPT/HCPCS: 71046; 81001; 87086; 87088; 87186

== ENCOUNTER 2023-09-08 11:14 | Outpatient (REF) | payer MEDICAID, SELFPAY ==
[2023-09-08 14:42] LABS: Appearance Urine Clear; Color Urine Yellow; Glucose Urine UA Negative (Negative); Leukocyte Esterase Urine Trace (Negative); Nitrite Urine Positive (Negative); PH 5.5 (5.0-9.0); UMIC TRIGGER UACC YES; Urine Blood Trace (Negative); Urine Ketones Negative (Negative); Urine Protein Trace mg/dL (Neg-Trace)
[2023-09-08 14:44] LABS: Bacteria Urine 4+ (None Seen); Hyaline Casts Urine 0-2 /LPF (0-2); RBC Urine 0-2 /HPF (0-2); Squamous Epithelial Cell Urine 0-2 /HPF (0-2); UACC Culture Trigger YES
== END 2023-09-08 11:15 | disposition home or self-care (01) ==
LOC: HO.CHCLNP 11:14
PROVIDERS: Visit Provider Internal Medicine
DX: R10.9 Unspecified abdominal pain (principal)
CPT/HCPCS: 81001; 87086; 87088; 87186

== ENCOUNTER 2023-09-14 09:40 | Outpatient (REF) | payer MEDICAID, SELFPAY ==
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
== END 2023-09-14 09:41 | disposition home or self-care (01) ==
LOC: HO.XRAY 09:40
PROVIDERS: Absent Provider Student in an Organized Health Care Education/Training Program; PCP Student in an Organized Health Care Education/Training Program; Visit Provider Internal Medicine
DX: R07.89 Other chest pain (principal)
CPT/HCPCS: 71101

== ENCOUNTER 2024-05-17 13:04 | Outpatient (AMB) | payer MEDICAID, SELFPAY ==
[2024-05-17 13:16] VITALS: BP 156/91; PULSE 93; BMI 25.5
--- NOTE | 2024-05-17 13:16 | A.OFFVIS_ITS ---
Vital Signs 05/17/24 13:16 Height 5 ft Weight 130 lb 6 oz BMI 25.5 BP 156/91 H Blood Pressure Location Rt brachial Position Sitting Pulse 93 Intake Visit Reasons: Sculp Cyst Intake Note: This patient presents for scalp cyst. Pt c/o; x2 scalp lumps, pain. Senior Windows Engineer Required: No Accompanied by: Brother Allergies morphine Allergy (Verified 05/17/24 13:32) Hives Medication List - Last Reconciled 05/17/24 by Anthony Callahan MD amlodipine 10 mg PO DAILY cetirizine (Zyrtec) 10 mg PO DAILY PRN diclofenac sodium 75 mg PO Q12H 30 days docusate sodium (Colace) 100 mg PO BID fluoxetine (Prozac) 40 mg PO BID ibuprofen 600 mg PO Q6H PRN ipratropium-albuterol 20-100 mcg/actuation (Combivent Respimat) 1 puff inhalation Q4H lamotrigine (Lamictal) 100 mg PO BID lamotrigine 200 mg PO QAM lidocaine 3% 1 appl topical TID PRN tiotropium bromide 2.5 mcg/actuation (Spiriva Respimat) 2 puffs inhalation QAM HPI HPI Sculp Cyst: Details: 54-year-old female referred for a scalp cyst. She says she has had this area on the right parietal scalp seems to be tender and swollen. She has had this for years. Denies any drainage. She also describes chronic headache on the mid parietal area. This is away from the area of the scalp cyst. [facility] History (Updated 05/17/24 @ 14:00 by Anthony Callahan MD) Scalp cyst Hx of emphysema Bleeding hemorrhoids Hypertension Anxiety Surgical History History of laparoscopic cholecystectomy History of section Family History Mother History of lung cancer Maternal Uncle History of colon cancer Social History Alcohol intake: current Alcohol intake frequency: holidays/special occasions only Second Hand Smoke Exposure: No Substance Use Type: Marijuana Current occupational status: disabled Review of Systems Const Denies chills and Denies fever(s) Card Denies chest pain, Denies dyspnea and Denies dyspnea on exertion Resp Details: Has asthma Denies cough, Denies dyspnea and Denies dyspnea on exertion GI Denies hematochezia and Denies change in bowel habits Denies hematuria Musc Denies back pain and Denies limited range of motion Neuro Details: Headaches Denies focal weakness and Denies convulsions Psych Denies depression and Denies mood swings Physical Exam Vital Signs: Last Vital Signs Pulse 93 05/17/24 13:16 BP 156/91 H 05/17/24 13:16 BMI result Body Mass Index 25.5 Const General: comfortable and no acute distress Orientation/consciousness: patient oriented x3 HEENT Other: Cystic induration on the right side parietal region about 1 cm ;no scalp lesions seen on the mid parietal area where she has headaches Neck Neck: Yes no lymphadenopathy Resp Auscultation: clear to auscultation bilaterally Cardio Rhythm: regular rhythm GI Palpation (GI): Soft to palpation, nontender and no guarding Neuro General: patient oriented x3 Assessment & Plan Assessment & Plan (1) Scalp cyst: Code(s): L72.9 - Follicular cyst of the skin and subcutaneous tissue, unspecified Category: Medical Plan: She wants this area excised. I explained the technique of excision under local anesthesia in the office. I reviewed the risks, benefits, and alternatives and she wants to proceed. This will be done on her next visit in the office. She understands that this area is unrelated to her frequent headaches on the mid parietal region. Coding Level of Care Code New Pt Level 3 (53047) Diagnoses Scalp cyst L72.9
== END 2024-05-17 14:01 | disposition home or self-care (01) ==
PROVIDERS: PCP Student in an Organized Health Care Education/Training Program; Visit Provider Surgery
DX: L72.9 Follicular cyst of the skin and subcutaneous tissue, unspecified (principal)
CPT/HCPCS: 99203

== ENCOUNTER → 2024-05-17 13:04 | Outpatient (BNVA) | payer MEDICAID, SELFPAY | PROVIDERS: PCP Student in an Organized Health Care Education/Training Program; Visit Provider Surgery | DX: L72.9 Follicular cyst of the skin and subcutaneous tissue, unspecified (principal) | CPT/HCPCS: 99202 ==

== ENCOUNTER 2024-05-23 09:52 | Outpatient (REF) | payer MEDICAID, SELFPAY ==
--- OUTSIDE RECORDS SUMMARY | 2024-05-23 10:44 | XMS_ITS | Clinical Summary ---
Author Organization [facility] ity Address [address] [place] [address] Care Team Providers Care Taproom Attendant Name Role Phone Unavailable Primary Care Provider Unavailabl e Social History Tobacco Use Types Packs/Day Years Used Date Smoking Tobacco: Never Assessed Sex and Gender Information Value Date Recorded Sex Assigned at Not on file Gender Identity Not on file Sexual Orientation Not on file Plan of Treatment Health Maintenance Due Date Last Done Comments Breast Cancer Screening 1970 DTaP,Tdap,and Td Vaccines (1 - Tdap) 1989 Hepatitis B Vaccines (1 of 3 - 19+ 3-dose series) 1989 Cervical Cancer Screening: P ap Smear 1991 Zoster Vaccines (1 of 2) 2020 Colorectal Cancer Screening: Colonoscopy 04/03/2022 Depression Screening 04/03/2022 HIV Screening 04/03/2022 Hepatitis C Screening 04/03/2022 Social Influencers of Health Screening 04/03/2022 COVID-19 Vaccine (2023-2 5 season) 2024 Influenza Vaccine (#1) 2024 HIB Vaccines Aged Out No longer eligi ble based on patient's age to complete this topic HPV Vaccines Aged Out No longer eligi ble based on patient's age to complete this topic Hepatitis A Vaccines Aged Out No long er eligible based on patient's age to complete this topic IPV Vaccines Aged Out No longer eligi ble based on patient's age to complete this topic MMR Vaccines Aged Out No longer eligi ble based on patient's age to complete this topic Meningococcal ACWY Vaccine Aged Out N o longer eligible based on patient's age to complete this topic Pneumococcal Vaccine: Pediat rics (0 to 5 Years) and At-Risk Patients (6 to 64 Years) Aged Out No longer eligible b ased on patient's age to complete this topic RSV Immunization Patients Un eliz 20 months Aged Out No longer eligible b ased on patient's age to complete this topic Varicella Vaccines Aged Out No longer eligible based on patient's age to complete this topic Advance Directives Documents on File Type Date Recorded Patient [employer] Tr[employer] Expl anation Health Care Decision (hx) 09/09/2016 AD CASTRO DIRECTIVE Health Care Decision (hx) 09/09/2016 AD CASTRO DIRECTIVE Health Care Decision (hx) 09/09/2016 AD CASTRO DIRECTIVE Health Care Decision (hx) 09/09/2016 AD CASTRO DIRECTIVE
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
--- OUTSIDE RECORDS SUMMARY | 2024-05-23 10:45 | XMS_ITS | Encounter Summary ---
Author Organization [employer] Address [address] [facility] 7t [place] [address] Care Team Providers Care General Car Supervisor Yard Name Role Phone Faiza Parra MD Primary Care Provider [phone] Encounter Details Date Type Department Care Team (Latest Contact Info) Description 05/19/2024 Travel Social History Tobacco Use Types Packs/Day Years Used Date Smoking Tobacco: Former Cigarettes Passive Smoke Exposure: Current Smokeless Tobacco: Former Alcohol Use Standard Drinks/Week Comments Yes 0 (1 standard drink = 0.6 oz pur e alcohol) oca Housing Stability Answer Date Recorded What is your housing situation today? I have janina molina 05/10/[address] you li [...] AM EDT documented as of this encounter Plan of Treatment Not on file documented as of this encounter Visit Diagnoses Not on filedocumented in this encounter Care Teams General Car Supervisor Yard Relationship Specialty Start Date End Date Faiza Parra MD [address] [place] [phone] PCP - General Family Medicine 05/09/13 documented as of this encounter
--- OUTSIDE RECORDS SUMMARY | 2024-05-23 10:45 | XMS_ITS | Encounter Summary ---
Author Organization [employer] Address [address] [place] [address] 7t [place] [address] Care Team Providers Care Product Communications Manager Name Role Phone Faiza Parra MD Primary Care Provider [phone] Encounter Details Date Type Department Care Team ([facility] Contact Info) Description 09/13/2023 Orders Only [facility] [address] [place] [address] Faiza Parra MD [address] [place] [address] Social History Tobacco Use Types Packs/Day Years Used Date Smoking Tobacco: Former Cigarettes Passive Smoke Exposure: Current Smokeless Tobacco: Former Housing Stability Answer Date Recorded What is your housing situation today? I have janina molina 02/19/[address] you li ve. Do you have problems with any of the following? None of the above 02/19/2023 Food Insecurity Answer Date Recorded Within the past 12 months, y ou worried that your food would run out before you got money to buy more: Never True 02/19/2023 Within the past 12 months,th e food you bought just didn't last and you didn't have enough money to get more: Never True Transportation Answer Date Recorded In the past 12 months, has l ack of transportation kept you from medical appts, meetings, work or from getting things needed for daily living? No 02/19/2023 Utilities Answer Date Recorded In the past 12 months, has t he electric, gas, oil or water company threatened to shut off services in your home? No 02/19/2023 Comments Unknown Sex and Gender Information Value Date Recorded Sex Assigned at Female 03/01/2022 10:21 AM EDT Legal Sex Female 10:21 AM EDT Gender Identity Female 03/01/2022 10:21 AM EDT Sexual Orientation Straight 03/01/2022 10 :21 AM EDT documented as of this encounter Plan of Treatment Not on file documented as of this encounter Visit Diagnoses Not on filedocumented in this encounter Care Teams Product Communications Manager Relationship Specialty Start Date End Date Faiza Parra MD [address] [place] [address] PCP - General Family Medicine 05/09/13 documented as of this encounter
--- OUTSIDE RECORDS SUMMARY | 2024-05-23 10:45 | XMS_ITS | Encounter Summary ---
Author Organization [employer] Address [address] [place] [address] 7[address] [place] [address] Care Team Providers Care Patternmaker Sample Name Role Phone Faiza Parra MD Primary Care Provider [phone] Reason for Referral * Consultation (Routine) - Closed Specialty Diagnoses / Procedures Referred By Jean daly Referred To Contact General Surgery Diagnoses Scalp cyst Faiza Parra MD [address] [place] [address] Phone: tel: fax: Anthony Callahan MD [address] [place] [address] Phone: tel: fax: Referral ID Status Reason Start Date Expiration Date V isits Requested Visits Authorized [id number] Closed Specialty Services Required 05/10/2024 05/10/2025 12 12 * Imaging (Routine) - Closed Specialty Diagnoses / Procedures Referred By Jean daly Referred To Contact Radiology Diagnoses Encounter for screening mammogram for breast cancer Procedures BI Mammogram Screening Tomosynthesis Bilateral Faiza Parra MD [address] [place] [address] Phone: tel: fax: [address] Phone: tel: fax: Referral ID Status Reason Start Date Expiration Date Visits Re quested Visits Authorized [id number] Closed 05/10/2024 05/10/2025 1 1 Reason for Visit * Reason Comments Annual Exam Encounter Details Date Type Department Care Team ([facility] st Contact Info) Description 05/10/2024 10:15 AM EST Office Visit [facility] [address] [place] [address] Faiza Parra MD [address] [place] [address] Essential hypertension (Primary Dx); Encounter for immunization; Encounter for screening mammogram for breast cancer; Encounter for annual wellness visit; Scalp cyst; Hot flash, menopausal Social History Tobacco Use Types Packs/Day Years Used Date Smoking Tobacco: Former Cigarettes Passive Smoke Exposure: Current Smokeless Tobacco: Former Tobacco Cessation:Counseling Given: Not Answered Housing Stability Answer Date Recorded What is [...] the past 12 months, has t he [employer], gas, oil or water [employer] threatened to shut off services in your [...] Sign Reading Time Taken Comments Blood Pressure 134/90 05/10/2024 10:06 AM EST Pulse 68 05/10/2024 10:06 AM EST Temperature 36.6 ??C (97.8 ??F) 05/10/2024 10:[address] Respiratory Rate 18 05/10/2024 10:06 AM EST Oxygen Saturation 98% 05/10/2024 10:06 AM EST Inhaled Oxygen Concentration - - Weight 59 kg (130 lb) 05/10/2024 10:06 AM EST Height 152.4 cm (5') 05/10/2024 10:06 AM EST Body Mass Index 25.39 05/10/2024 10:06 AM EST documented in this encounter Progress Notes * Faiza Parra MD - 05/10/2024 10:15 AM EST Subjective Patient ID: Shannen Ma is a 54 y.o. female who presents for Annual Exam. Hypertension This is a chronic problem. The current episode started more than 1 year ago. The problem is unchanged. The problem is controlled. Pertinent negatives include no anxiety, blurred vision, chest pain, headaches, malaise/fatigue, neck pain, orthopnea, palpitations, peripheral edema, PND, shortness of breath or sweats. Past treatments include calcium channel blockers. The current treatment provides significant improvement. There are no compliance problems. Review of Systems Constitutional: Negative for malaise/fatigue. Eyes: Negative for blurred vision. Respiratory: Negative for shortness of breath. Cardiovascular: Negative for chest pain, palpitations, orthopnea and PND. Musculoskeletal: Negative for neck pain. Neurological: Negative for headaches. Objective Physical Exam Constitutional: Appearance: Normal appearance. HENT: Head: Normocephalic and atraumatic. Right Ear: Tympanic membrane normal. Left Ear: Tympanic membrane normal. Mouth/Throat: Mouth: Mucous membranes are moist. Eyes: Pupils: Pupils are equal, round, and reactive to light. Cardiovascular: Rate and Rhythm: Normal rate and regular rhythm. Pulmonary: Effort: Pulmonary effort is normal. Breath sounds: Normal breath sounds. Abdominal: General: Abdomen is flat. Palpations: Abdomen is soft. Musculoskeletal: General: Normal range of motion. Skin: General: Skin is warm. Comments: Cyst of right side of scalp Neurological: General: No focal deficit present. Mental Status: She is alert. Psychiatric: Mood and Affect: Mood normal. Behavior: Behavior normal. Assessment/Plan Diagnoses and all orders for this visit: Essential hypertension Comments: Well controlled Labs ordered Maintain a low-sodium diet (less than 2 grams per day). Maintain a regular cardiovascular exercise program. Advised to maintain a low-fat, low-cholesterol diet. Counseled regarding importance of weight loss. Counseled re: potential co-morbidities including cardiovascular disease. Orders: - Basic Metabolic Panel; Future - Lipid Panel, Standard; Future - Hepatic Function Panel; Future Encounter for immunization - TDAP VACCINE 7 yrs + Encounter for screening mammogram for breast cancer - BI Mammogram Screening Tomosynthesis Bilateral; Future Encounter for annual wellness visit - Hepatitis C Antibody with Reflex to HCV, RNA, Quantitative, Real-Time PCR; Future - HIV-1/2 Antigen and Antibodies, Fourth Generation, with Reflexes; Future Scalp cyst Comments: Referred to Surgeon for removal Orders: - Referral to General Surgery; Future Hot flash, menopausal Comments: Started on Prozac daily Other orders - FLUoxetine (PROzac) 20 MG capsule; Take 1 capsule (20 mg) by mouth Once per day. documented in this encounter Plan of Treatment Scheduled Orders Name Type Priority Associated Diagnoses Orde r Schedule Hepatitis C Antibody with Reflex to HCV, RNA, Quantitative, Real-Time PCR Lab Routine Encounter For Annual Wellness Visit Expected: 05/10/2024, Expires: 05/10/2025 HIV-1/2 Antigen and Antibodies, Fourth Generation, with Reflexes Lab Routine Encounter For Annual Wellness Visit Expected: 05/10/2024 (Approximate), Expires: 05/10/2025 Basic Metabolic Panel Lab Routine Essential hypertension Expected: 05/10/2024 (Approximate), Expires: 05/10/2025 Lipid Panel, Standard Lab Routine Essential hypertension Expected: 05/10/2024 (Approximate), Expires: 05/10/2025 Hepatic Function Panel Lab Routine Essential hypertension Expected: 05/10/2024 (Approximate), Expires: 05/10/2025 BI Mammogram Screening Tomosynthesis Bilateral Imaging Routine Encounter for screening mammogram for breast cancer Expected: 05/10/2024, Expires: 07/08/2025 Scheduled Referrals Name Type Priority Associated Diagnoses Orde r Schedule Referral to General Surgery Outpatient Referral Routine Scalp cyst Expected: 05/10/2024 (Approximate), Expires: 05/10/2025 documented as of this encounter Visit Diagnoses Diagnosis Essential hypertension- Primary Unspecified essential hypertension Encounter for immunization Encounter for screening mammogram for breast cancer Encounter for annual wellness visit Scalp cyst Sebaceous cyst Hot flash, menopausal Symptomatic menopausal or female climacteric states documented in this encounter Care Teams Patternmaker Sample Relationship Specialty Start Date End Date Faiza Parra MD [address] [place] [phone] PCP - General Family Medicine 05/09/13 documented as of this encounter
--- OUTSIDE RECORDS SUMMARY | 2024-05-23 10:45 | XMS_ITS | Encounter Summary ---
Author Organization [employer] Address [address] [facility] 7t [place] [address] Care Team Providers Care Mold Stripper Name Role Phone Faiza Parra MD Primary Care Provider [phone] Reason for Visit * Reason Comments Routine Cleaning Dental Exam Encounter Details Date Type Department Care Team ([facility] st Contact Info) Description 05/23/2024 10:00 AM EST Office Visit [facility] [address] [place] [address] Barbara Coe Social History Tobacco Use Types Packs/Day Years [...] Sign Reading Time Taken Comments Blood Pressure 126/82 05/23/2024 10:04 AM EST Pulse - - Temperature - - Respiratory Rate - - Oxygen Saturation - - Inhaled Oxygen Concentration - - Weight - - Height - - Body Mass Index - - documented in this encounter Plan of Treatment Not on file documented as of this encounter Procedures Procedure Name Priority Date/Time Associated Diagnosis Comments 26 EXTRACTION Routine 05/23/2024 12:00 AM EST 27 EXTRACTION Routine 05/23/2024 12:00 AM EST 25 EXTRACTION Routine 05/23/2024 12:00 AM EST 24 EXTRACTION Routine 05/23/2024 12:00 AM EST 23 EXTRACTION Routine 05/23/2024 12:00 AM EST 22 EXTRACTION Routine 05/23/2024 12:00 AM EST 9 EXTRACTION Routine 05/23/2024 12:00 AM EST 8 EXTRACTION Routine 05/23/2024 12:00 AM EST documented in this encounter Visit Diagnoses Not on filedocumented in this encounter Care Teams Mold Stripper Relationship Specialty Start Date End Date Faiza Parra MD [address] [place] [id number] PCP - General Family Medicine 05/09/13 documented as of this encounter
--- OUTSIDE RECORDS SUMMARY | 2024-05-23 10:45 | XMS_ITS | Encounter Summary ---
Author Organization [employer] Address [address] [facility] 7t [place] [address] Care Team Providers Care Global Account Manager Name Role Phone Faiza Parra MD Primary Care Provider [phone] Reason for Visit * Reason Comments Pre-visit Planning SDOH unable to reach LVM Encounter Details Date Type Department Care Team ([facility] st Contact Info) Description 05/03/2024 Patient Outreach [facility] P[facility] [address] [place] [address] Faiza Parra MD [address] [place] [address] Pre-visit Planning (SDOH unable to reach LVM) Social History Tobacco Use Types Packs/Day Years [...] AM EDT documented as of this encounter Progress Notes * Claudia Amador - 05/03/2024 12:56 PM EST CC Claudia Winkler placed outbound call to patient to complete pre-visit planning. No answer at this time. Patient name and were not confirmed. CC left voicemail requesting return call. Direct contactinformation provided. documented in this encounter Plan of Treatment Not on file documented as of this encounter Visit Diagnoses Not on filedocumented in this encounter Care Teams Global Account Manager Relationship Specialty Start Date End Date Faiza Parra MD [address] [place] [phone] PCP - General Family Medicine 05/09/13 documented as of this encounter
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
--- OUTSIDE RECORDS SUMMARY | 2024-05-23 10:45 | XMS_ITS | Encounter Summary ---
Author Organization [employer] Address [address] [place] [address] [address] [place] [address] Care Team Providers Care Surgical Scrub Tech Name Role Phone Faiza Parra MD Primary Care Provider [phone] Reason for Visit * Reason Comments Med Change Request Encounter Details Date Type Department Care Team ([facility] Contact Info) Description 02/22/2023 Refill [facility] [address] [place] [address] Alexandro Alicia MD [address] [place] [address] Social History Tobacco Use Types Packs/Day Years Used Date Smoking Tobacco: Former Cigarettes Smokeless Tobacco: Former Housing Stability Answer Date [...] on filedocumented in this encounter Care Teams Surgical Scrub Tech Relationship Specialty Start Date End Date Faiza Parra MD [address] [place] [id number] PCP - General Family Medicine 05/09/13 documented as of this encounter
--- OUTSIDE RECORDS SUMMARY | 2024-05-23 10:45 | XMS_ITS | Encounter Summary ---
Author Organization [employer] Address [address] [facility] [address] [place] [address] Care Team Providers Care Enterprise Integration Architect Name Role Phone Faiza Parra MD Primary Care Provider [phone] Encounter Details Date Type Department Care Team (Latest Contact Info) Description 05/10/2024 Travel Social History Tobacco Use Types Packs/Day [...] on filedocumented in this encounter Care Teams Enterprise Integration Architect Relationship Specialty Start Date End Date Faiza Parra MD [address] [place] [id number] PCP - General Family Medicine 05/09/13 documented as of this encounter
--- OUTSIDE RECORDS SUMMARY | 2024-05-23 10:45 | XMS_ITS | Clinical Summary ---
Author Organization [employer] Address [address] [place] [address] 7[address] [place] [address] Care Team Providers Care Full Roll Inspector Name Role Phone Faiza Parra MD Primary Care Provider [phone] Allergies Active Allergy Reactions Criticality Noted Date Comments Lisinopril Angioedema 07/21/2023 Medications lamoTRIgine (LaMICtal) 100 MG tablet TOME THUY TABLETA TODOS LOS D AL ACOSTARSE 03/29/20 22 Active naproxen (Naprosyn) 500 MG tablet TOME THUY TABLETA DOS VECES AL PAOLO 60 tablet 01/06/20 23 Active albuterol (2.5 MG/3ML) 0.083% nebulizer solution inhale 3 milliliter by nebulization route 3 times every day 90 mL 3 01/29/20 23 Active lamoTRIgine (LaMICtal) 200 MG tablet TOME THUY TABLETA POR V A ORAL EN LA MA HUGO 10/28/19 23 Active ipratropium-al buterol (Combivent Respimat) 20-100 MCG/ACT inhalerIndicat ions:SOB (shortness of breath) INHALE 1 PUFF BY INHALATION ROUTE TWICE A DAY 4 g 1 02/02/20 23 Active Ventolin HFA 108 (90 Base) MCG/ACT inhaler INHALE 2 PUFFS POR VIA ORAL EVERY 6 HOURS. 18 g 1 02/22/20 23 Active amLODIPine (Norvasc) 10 MG tablet TOME THUY TABLETA TODOS LOS XAVIER 90 tablet 1 07/21/19 24 Active cholecalcifero l (Vitamin D-3) 25 MCG (1000 UT) tablet Take 1 tablet (25 mcg) by mouth in the morning. 30 tablet 11 07/21/19 24 025 Active triamcinolone (Kenalog) 0.1 % cream Apply topically if needed in the morning and at bedtime (pain and swelling). 30 g 2 07/21/19 24 Active lidocaine (Xylocaine) 5 % ointment Apply topically if needed for mild pain. 50 g 3 08/09/19 24 025 Active FLUoxetine (PROzac) 20 MG capsule Take 1 capsule (20 mg) by mouth Once per day. 30 capsule 05/10/19 25 025 Active Diclofenac Sodium 1 % gelIndications :Scalp pain Apply 1 Application topically if needed in the morning, at noon, in the evening, and at bedtime (pain) for up to 7 days. 100 g 05/19/19 25 025 Active FLUoxetine (PROzac) 40 MG capsule TOME THUY C PSULA TODOS LOS D EN LA ALEKSANDRA HUGO 03/05/20 22 025 Discontinued Active Problems Problem Noted Date Diagnosed Date Chronic obstructive pulmonary disease 07/21/2023 Essential hypertension 05/06/2022 Pain in lower limb 12/28/2011 Bipolar disorder 12/28/2011 Tobacco dependence syndrome 12/28/2011 Interstitial pneumonia 12/28/2011 Impacted cerumen 12/28/2011 Encounters Date Type Department Care Team Description 05/23/2024 10:00 AM EST Office Visit [facility] [address] [place] [address] Barbara Coe Arrived 05/19/2024 11:20 AM EST Office Visit [facility] [address] [place] [address] Wilfredo Sainz MD Scalp pain (Primary Dx) 05/19/2024 Travel 05/18/2024 Telephone [facility] [address] [place] [address] Faiza Parra MD Nurse Triage 05/10/2024 10:15 AM EST Office Visit [facility] [address] [place] [address] Faiza Parra MD Essential hypertension (Primary Dx); Encounter for immunization; Encounter for screening mammogram for breast cancer; Encounter for annual wellness visit; Scalp cyst; Hot flash, menopausal 05/10/2024 Travel 05/03/2024 Patient Outreach [facility] [address] [place] [address] Faiza Parra MD Pre-visit Planning ([facility] unable to reach [facility]) 02/27/2024 Telephone [facility] [address] [place] [address] Faiza Parra MD Transition Of Care (Tcm) from Last 3 Months Immunizations Name Administration Dates Next Due Influenza, Split (incl. purified surface antigen ) 02/29/2012 Tdap 05/10/2024,10/18/2012 Social History Tobacco Use Types Packs/Day Years Used Date Smoking Tobacco: Former Cigarettes Passive Smoke Exposure: Current Smokeless Tobacco: Former Tobacco Cessation:Counseling Given: Not Answered Alcohol Use Standard Drinks/Week Comments Yes 0 [...] t he electric, gas, oil or water [employer] threatened to shut off services in your [...] Orientation Straight 03/01/2022 10 :21 AM EDT Last Filed Vital Signs Vital Sign Reading Time Taken Comments Blood Pressure 126/82 05/23/2024 10:04 AM EST Pulse 71 05/19/2024 10:33 AM [...] Mass Index 25.05 05/19/2024 10:33 AM EST Plan of Treatment Health Maintenance Due Date Last Done Comments CT Colonography 1970 Colonoscopy 1970 Dental Oral Exam 1970 Dental Prophylaxis 1970 Dental X-Ray: Bitewings 1970 Dental X-Ray: Full Mouth 1970 FIT 1970 FOBT 1970 HIV Screening 1970 Sigmoidoscopy 1970 Pneumococcal Vaccine: Pediatrics (0 to 5 Years) and At-Risk Patients (6 to 64 Years) (1 of 2 - PCV) 1976 Hepatitis C Screening 1988 Hepatitis A Vaccines (1 of 2 - Risk 2-dose series) 1989 Hepatitis B Vaccines (1 of 3 - 19+ 3-dose series) 1989 Zoster Vaccines (1 of 2) 2020 Mammogram 01/07/2024 07/07/2023, 03/0 10/2023, 12/15/2022, Additional history exists Influenza Vaccine (#1) 2024 02/29/2012 Postp oned from 01/01/2024 (Patient Refused) Alcohol/Substance Use Screening 05/10/2025 05/10/2024 COVID-19 Vaccine ( season) 2025 06/01/2021, 08/07/2020, 07/09/2020 Postponed from 01/01/2024 (Patient Refused) Depression Screening 05/10/2025 05/10/2024, 05/10/19 25 SDOH Screening 05/10/2025 05/10/2024 Tobacco Screening 05/23/2025 05/23/2024 Cervical Cancer Screening 03/31/2026 HPV/Cotest 03/31/2026 03/31/2021, 11/01/2017 Pap Smear 03/31/2026 03/31/2021 Colorectal Cancer Screening 09/07/2026 FIT DNA/Cologuard 09/07/2026 09/08/2023 Lipid Panel 08/08/2028 08/09/2023, 06/02/2021 DTaP/Tdap/Td Vaccines (3 - Td or Tdap) 05/10/2034 05/10/2024, 10/18/2012 RSV Patients and Patients Aged 60 years or older (1 - 1-dose 75+ series) 2045 HIB Vaccines Aged Out No longer eligi ble based on patient's age to complete this topic HPV Vaccines Aged Out No longer eligi ble based on patient's age to complete this topic IPV Vaccines Aged Out No longer eligi ble based on patient's age to complete this topic Meningococcal Vaccine Aged Out No ann keshawn eligible based on patient's age to complete this topic RSV under 20 months Aged Out No longe r eligible based on patient's age to complete this topic Rotavirus Vaccines Aged Out No longer eligible based on patient's age to complete this topic Procedures Procedure Name Priority Date/Time Associated Diagnosis [...] 8 EXTRACTION Routine 05/23/2024 12:00 AM EST LAB COLOGUARD?? COLON CANCER SCREEN Routine 09/08/2023 8:00 AM EDT Encounter for screening for malignant neoplasm of colon LIPID PANEL, STANDARD Routine 08/09/2023 9:39 AM EDT Essential hypertension BI US BREAST LIMITED LEFT Routine 07/07/2023 1:22 PM EST THINPREP IMAGING PAP AND HPV MRNA E6/E7 WITH REFLEX TO HPV 16,18/45 Routine 03/31/2021 10:43 AM EST from Last 3 Months or Most Recently Relevant to Health Maintenance Results * Cologuard?? colon cancer screening (09/08/2023 8:00 AM EDT) Cologuard Result Negative Negative 10/01/19 9:44 AM EDT [facility] (CLIA #:[id number]) Comment: NEGATIVE TEST RESULT. A negative Cologuard result indicates a low likelihood that a colorectal cancer (CRC) or advanced adenoma (adenomatous polyps with more advanced pre-malignant features) ??is present. The chance that a person with a negative Cologuard test has a colorectal cancer is less than 1 in 1500 (negative predictive value >99.9%) or has an ??advanced adenoma is less than ??5.3% (negative predictive value 94.7%). These data are based on a prospective cross-sectional study of 10,000 individuals at average risk for colorectal cancer who were screened with both Cologuard and colonoscopy. (Levi Narayanan al, N Engl J Med 2014;370(14):1286- 1297) The normal value (reference range) for this assay is negative. COLOGUARD RE-SCREENING RECOMMENDATION: Periodic colorectal cancer screening is an important part of preventive healthcare for asymptomatic individuals at average risk for colorectal cancer. ??Following a negative Cologuard result, the [place] [employer] and U.S. Multi-Society Task Force screening guidelines recommend a Cologuard re-screening interval of 3 years. References: [place] [employer] Guideline for Colorectal Cancer Screening: https://www.cancer.org/cancer/nxyol-rmjjaw-mtnacy/cfduttapg-vncumxwtr-joksmrp/ac s-rec ommendations.html.; Isauro DK, Urmila CR, Charlotte CODY, Colorectal Cancer Screening: Recommendations for Physicians and Patients from the U.S. Multi-Society Task Force on Colorectal Cancer Screening , Am J Gastroenterology 2017; 112:1458-4532. TEST DESCRIPTION: Composite algorithmic analysis of stool DNA-biomarkers with hemoglobin immunoassay. ?? Quantitative values of individual biomarkers are not reportable and are not associated with individual biomarker result reference ranges. Cologuard is intended for colorectal cancer screening of adults of either sex, 45 years or older, who are at average-risk for colorectal cancer (CRC). Cologuard has been approved for use by the U.S. FDA. The performance of Cologuard was established in a cross sectional study of average-risk adults aged 50-84. Cologuard performance in patients ages 45 to 49 years was estimated by sub-group analysis of near-age groups. Colonoscopies performed for a positive result may find as the most clinically significant lesion: colorectal cancer [4.0%], advanced adenoma (including sessile serrated polyps greater than or equal to 1cm diameter) [20%] or non- advanced adenoma [31%]; or no colorectal neoplasia [45%]. These estimates are derived from a prospective cross-sectional screening study of 10,000 individuals at average risk for colorectal cancer who were screened with both Cologuard and colonoscopy. (Levi Narayanan al, N Engl J Med 2014;370(14):9625-6107.) Cologuard may produce a false negative or false positive result (no colorectal cancer or precancerous polyp present at colonoscopy follow up). A negative Cologuard test result does not guarantee the absence of CRC or advanced adenoma (pre-cancer). The current Cologuard screening interval is every 3 years. ([place] [employer] and U.S. Multi-Society Task Force). Cologuard performance data in a 10,000 patient pivotal study using colonoscopy as the reference method can be accessed at the following location: www.[employer].com/results. Additional description of the Cologuard test process, warnings and precautions can be found at www.[employer].com. Stool specimen (specimen) 09/08/2023 8:00 AM EDT 09/10/2023 8:51 AM EDT us Faiza Parra MD LAB MOLECULAR DIAGNOSTICS ORDERA BLES Final Result [facility] (CLIA #:[id number]) [address] [place] [address], * Lipid Panel, Standard (08/09/2023 9:39 AM EDT) Triglycerides 97 <150 mg/dL [facility] Comment:Desirable Triglyceri de: less than 150 mg/dLBorderline High Triglyceride 150-199 mg/dLHigh Triglyceride: 200-499 mg/dLVery High Triglyceride: greater than or equal to 5OO mg/dL Cholesterol 158 <200 mg/dL [facility] Comment:Desirable Cholestero l: less than 200 mg/dLBorderline High Cholesterol: 200-239 mg/dLHigh Cholesterol: greater than 239 mg/dL LDL Cholesterol Calculated 83 <100 mg/dL [facility] Comment:Desirable LDL: less than 100 mg/dLNear Optimal/Above Optimal LDL: 110- 129 mg/dLBorderline High LDL: 130-159 mg/dLHigh LDL: 160-189 mg/dLVery High LDL: greater than or equal to 190 mg/dL HDL Cholesterol 56 >40 mg/dL [facility] Comment:Desirable HDL: great er than 40 mg/dL Note: This HDL assay may give artificially low results in patients with liver disease. Blood Venous blood specimen / Unknown 08/09/2023 9:39 AM EDT 08/09/2023 2:20 PM EDT us Faiza Parra MD LAB BLOOD ORDERABLES Final Resul t [facility] [address] [place] [phone] * BI US Breast Limited Left (07/07/2023 1:22 PM EST) Anatomical Region Laterality Modality Breast Left Ultrasound 07/07/2023 1:22 PM EST Narrative 07/07/2023 1:38 PM EST ? [facility] ? [address] ?[place] [address] ? Ultrasound Report ? Signed ? Patient: Anil,Shannen ?MR#: [id number] ?? [id number] ? : 1970 ?Acct:[id number] ? Age/Sex: 53 / F ?ADM Date: 07/07/23 ? Loc: HO.MAMMO ? Attending Dr: Faiza Parra MD ? Ordering Physician: Faiza Parra MD ?? Date of Service: 07/07/23 ?? Procedure(s): US breast LT limited mamm only ?? Accession Number(s): [id number] ? cc: Faiza Parra MD ? EXAMINATION: ?? MM DIAGNOSTIC DIGITAL BREAST TOMOSYNTHESIS, BILATERAL ?? US BREAST LIMITED, LEFT ? MAMMOGRAPHY: ?? CLINICAL INFORMATION: ? -6 month Follow-up left breast complicated cyst 5:00 axis measuring 7 x ?? 8 x 7 mm. ?? -6 month Follow-up right breast oval possible 7 mm low-density ?? circumscribed mass seen mid posterior along the nipple line, with no ?? previous ultrasound correlate seen. ? COMPARISON: ?? Mammography of 04/16/2022, and studies dating back to 12/07/2013. ?? Bilateral breast ultrasound dated 12/15/2022, and 04/23/2022. ? TECHNIQUE: ?? Digital breast tomosynthesis is performed in both the craniocaudal and ?? mediolateral oblique views along with computer-aided detection (CAD). ?? Synthesized 2D images are generated from the tomosynthesis. ? FINDINGS: ?? The breasts are heterogeneously dense, which may obscure small masses ?? (ACR BI-RADS breast composition Category c). ? The previously seen oval 7 mm circumscribed mass right breast along the ?? nipple line mid to posterior one third does not definitively persist on ?? today's right mammography or spot compression exam. This is most likely ?? a benign island of normal breast tissue. ?? There are stable benign appearing scattered calcifications in both ?? breasts. No suspicious grouping. There is a similar appearing oval ?? circumscribed mass in the left breast at the 5:30 axis, anterior one ?? third, correlating with the previously seen complicated cyst on ?? ultrasound. This will be reevaluated on ultrasound today. ? Otherwise, no suspicious masses, suspicious grouped calcifications, or ?? regions of architectural distortion are identified in either breast. ?? There are no skin or definitive axillary abnormalities. ? ULTRASOUND: ?? CLINICAL INFORMATION: ?? Evaluate stability of complicated cyst 5:00 axis left breast measuring ?? 7 x 8 x 7 mm. ? COMPARISON: ?? 12/15/2022, and 04/23/2022. ? TECHNIQUE: ?? Targeted left sonographic evaluation was performed using a high ?? frequency linear transducer. Left breast was evaluated from the 4:00 to ?? 7:00 axes. Selected archived documentation. ? FINDINGS: ? LEFT BREAST: ?? -At the 5:00 axis, 2 cm from the nipple, there is a slightly smaller ?? complicated cyst with good through transmission, circumscribed, ?? measuring 6 x 6 x 6 mm, previously 7 x 8 x 7 mm 12/15/2022. No internal ?? color Doppler vascular flow or other suspicious abnormalities. This ?? finding is benign. No further follow-up recommended. ? No additional abnormalities seen in the left breast on ultrasound in ?? the area scanned 4:00 to 7:00. ? US/US breast LT limited mamm only ?? IMPRESSION: ?? There are no findings suspicious for malignancy in either breast. There ?? are stable benign findings. ? There is continued size decrease in the mildly complicated cyst in the ?? left breast at the 5:00 axis as described. This finding is benign, and ?? no further follow-up is recommended. ? Today's examination shows no persisting right breast oval mass ?? previously suspected along the nipple line right MLO projection, with ?? no prior ultrasound correlate. This is most likely a normal island of ?? overlapping breast parenchyma (summation artifact). No further ?? follow-up suggested. ? Recommend the patient return to routine annual screening in one year. ? OVERALL ASSESSMENT: ?? Mammography: BI-RADS 2 - Benign Findings ?? Ultrasound: BI-RADS 2 - Benign Findings ? RECOMMENDATION: ?? 1 year F/U ? This patient's information was entered into a reminder system with a ?? target due date for their next mammogram. ? Dictated By: ?Mithcel Belle MD ? Signed By: ?<Electronically signed by Mitchel Belle MD in OV> ?07/07/23 1334 ? DD/ 1322 ? TD/TT: ? Commercial Energy Auditor: ? Procedure Note Donotuseinterpreter, Image - 07/07/2023 [facility] [address] [place] [address] Ultrasound Report Signed Patient: Shannen MaMR#: [id number] : 1970Acct:[id number] Age/Sex: 53 / FADM Date: 07/07/23 Loc: HO.MAMMO Attending Dr: Faiza Parra MD Ordering Physician: Faiza Parra MD Date of Service: 07/07/23 Procedure(s): US breast LT limited mamm only Accession Number(s): [id number] cc: Faiza Parra MD EXAMINATION: MM DIAGNOSTIC DIGITAL BREAST TOMOSYNTHESIS, BILATERAL US BREAST LIMITED, LEFT MAMMOGRAPHY: CLINICAL INFORMATION: -6 month Follow-up left breast complicated cyst 5:00 axis measuring 7 x 8 x 7 mm. -6 month Follow-up right breast oval possible 7 mm low-density circumscribed mass seen mid posterior along the nipple line, with no previous ultrasound correlate seen. COMPARISON: Mammography of 04/16/2022, and studies dating back to 12/07/2013. Bilateral breast ultrasound dated 12/15/2022, and 04/23/2022. TECHNIQUE: Digital breast tomosynthesis is performed in both the craniocaudal and mediolateral oblique views along with computer-aided detection (CAD). Synthesized 2D images are generated from the tomosynthesis. FINDINGS: The breasts are heterogeneously dense, which may obscure small masses (ACR BI-RADS breast composition Category c). The previously seen oval 7 mm circumscribed mass right breast along the nipple line mid to posterior one third does not definitively persist on today's right mammography or spot compression exam. This is most likely a benign island of normal breast tissue. There are stable benign appearing scattered calcifications in both breasts. No suspicious grouping. There is a similar appearing oval circumscribed mass in the left breast at the 5:30 axis, anterior one third, correlating with the previously seen complicated cyst on ultrasound. This will be reevaluated on ultrasound today. Otherwise, no suspicious masses, suspicious grouped calcifications, or regions of architectural distortion are identified in either breast. There are no skin or definitive axillary abnormalities. ULTRASOUND: CLINICAL INFORMATION: Evaluate stability of complicated cyst 5:00 axis left breast measuring 7 x 8 x 7 mm. COMPARISON: 12/15/2022, and 04/23/2022. TECHNIQUE: Targeted left sonographic evaluation was performed using a high frequency linear transducer. Left breast was evaluated from the 4:00 to 7:00 axes. Selected archived documentation. FINDINGS: LEFT BREAST: -At the 5:00 axis, 2 cm from the nipple, there is a slightly smaller complicated cyst with good through transmission, circumscribed, measuring 6 x 6 x 6 mm, previously 7 x 8 x 7 mm 12/15/2022. No internal color Doppler vascular flow or other suspicious abnormalities. This finding is benign. No further follow-up recommended. No additional abnormalities seen in the left breast on ultrasound in the area scanned 4:00 to 7:00. US/US breast LT limited mamm only IMPRESSION: There are no findings suspicious for malignancy in either breast. There are stable benign findings. There is continued size decrease in the mildly complicated cyst in the left breast at the 5:00 axis as described. This finding is benign, and no further follow-up is recommended. Today's examination shows no persisting right breast oval mass previously suspected along the nipple line right MLO projection, with no prior ultrasound correlate. This is most likely a normal island of overlapping breast parenchyma (summation artifact). No further follow-up suggested. Recommend the patient return to routine annual screening in one year. OVERALL ASSESSMENT: Mammography: BI-RADS 2 - Benign Findings Ultrasound: BI-RADS 2 - Benign Findings RECOMMENDATION: 1 year F/U This patient's information was entered into a reminder system with a target due date for their next mammogram. Dictated By: Mitchel Belle MD Signed By: <Electronically signed by Mitchel Belle MD in OV> 07/07/23 1334 DD/ 1322 TD/TT: Commercial Energy Auditor: us Faiza Parra MD IMG US PROCEDURES Final Result * THINPREP TIS PAP AND HPV mRNA E6/E7 REFLEX HPV 16,18/45 (03/31/2021 10:43 AM EST) Clinical Information: [facility] COMMENT SEE COMMENT [facility] Comment: EXPLANATORY NOTE: ? The Pap is a screening test for cervical cancer. It is ?? not a diagnostic test and is subject to false negative ?? and false positive results. It is most reliable when a ?? satisfactory sample, regularly obtained, is submitted ?? with relevant clinical findings and history, and when ?? the Pap result is evaluated along with historic and ?? current clinical information. ?? COMMENT: This Pap test has been evaluated with computer assisted technology. [facility] Engineer And Geologist: SEE COMMENT [facility] Comment: MSM, CT(ASCP) CT screening location: [address] ??[address] HPV nRNA E6/E7 Not Detected Not Detected [facility] Comment: Methodology: Crozer-Mediated Amplification This assay detects E6/E7 viral messenger RNA (mRNA) from 14 high-risk HPV types (16,18,31,33,35,39,45,51,52,56,58,59,66,68). ? The analytical performance characteristics of this assay have been determined by [employer]. The modifications have not been cleared or approved by the FDA. This assay has been validated pursuant to the CLIA regulations and is used for clinical purposes. ?? For additional information, please refer to http://education.Scheduling Employee Scheduling Software/faq/IWK056h4 (This link if provided for information/ educational purposes only.) Interpretation/Re sult: Negative for intraepithelial lesion or malignancy. [facility] LMP: 03/20/2021NIL/NEG [facility] Prev. BX: NONE GIVEN [facility] Prev. PAP: 2,018 [facility] SOURCE: [facility] Statement Of Adequacy: SEE COMMENT [facility] Comment: Satisfactory for evaluation. Endocervical/transformation zone component present. 03/31/2021 10:4 3 AM EST us [facility]Y ORDERABLES Final Result [facility] [address] from Last 3 Months or Most Recently Relevant to Health Maintenance Insurance [place] [facility] MEDICAID STAND ADULT Care Teams Full Roll Inspector Relationship Specialty Start Date End Date Faiza Parra MD [address] [place] [id number] PCP - General Family Medicine 05/09/13
--- OUTSIDE RECORDS SUMMARY | 2024-05-23 10:46 | XMS_ITS | Encounter Summary ---
Author Organization [facility] Address [address] [place] [address] [address] [place] [address] Care Team Providers Care Laundry Supervisor Name Role Phone Faiza Parra MD Primary Care Provider [phone] Encounter Details Date Type Department Care Team (Late st Contact Info) Description 06/07/2022 Abstract [facility] [address] [place] [address] Faiza Parra MD [address] [place], [place] [id number] Social History Tobacco Use Types Packs/Day Years Used Date Smoking Tobacco: Former Cigarettes Smokeless Tobacco: Former Comments Unknown Sex and Gender Information Value Date Recorded Sex Assigned at Female 03/01/2022 10:21 AM EDT Legal Sex Female 10:21 AM EDT Gender Identity Female 03/01/2022 10:21 AM EDT Sexual Orientation Straight 03/01/2022 10 :21 AM EDT documented as of this encounter Plan of Treatment Not on file documented as of this encounter Procedures Procedure Name Priority Date/Time Associated Diagnosis Comments MAMMOGRAPHY Routine 05/26/2022 documented in this encounter Results * Mammography (05/26/2022) Mammogram performed Anatomical Region Laterality Modality Other us Historical Provider HEALTH MAINTENANCE Final Result documented in this encounter Visit Diagnoses Not on filedocumented in this encounter Care Teams Laundry Supervisor Relationship Specialty Start Date End Date Faiza Parra MD [address] [place] [address] PCP - General Family Medicine 05/09/13 documented as of this encounter
[2024-05-23 14:35] LABS: Alanine Aminotransferase 19 U/L (0-31); Albumin Level 3.9 g/dL (3.5-5.0); Alkaline Phosphatase 88 U/L (39-117); Anion Gap 9 (12-20); Aspartate Amino Transferase 35 U/L (5-31); Bilirubin Direct 0.2 mg/dL (0.0-0.5); Bilirubin Total 0.4 mg/dL (0.0-1.0); Blood Urea Nitrogen 10 mg/dL (9-16); Calcium 9.3 mg/dL (8.4-10.2); Carbon Dioxide 25 mmol/L (22-29); Chloride 110 mmol/L (96-108); Cholesterol 132 mg/dL (<200); Estimated Glomerular Filt Rate > 60; Glucose Random 104 mg/dL (60-115); HDL Cholesterol 45 mg/dL (>40); LDL Cholesterol Calculated 74 mg/dL (<100); Potassium 3.4 mmol/L (3.3-5.1); Sodium 141 mmol/L (135-145); Total Protein 7.8 g/dL (6.5-8.0); Triglycerides 68 mg/dL (<150)
[2024-05-24 08:03] LABS: HIV AB/AG Nonreactive (Nonreactive); HIV Num 1 0.05 S/CO (0.00-0.99); ~HepC Num1 0.09 S/CO (0.00-0.79); ~Hepatitis C Antibody Nonreactive (Nonreactive)
== END 2024-05-23 09:53 | disposition home or self-care (01) ==
LOC: HO.CHCLDS 09:52
PROVIDERS: Visit Provider Student in an Organized Health Care Education/Training Program
DX: Z00.00 Encounter for general adult medical examination without abnormal findings (principal); I10 Essential (primary) hypertension
CPT/HCPCS: 36415; 80048; 80061; 80076; 86803; 87389

== ENCOUNTER 2024-12-06 15:04 | Outpatient (REF) | payer MEDICAID, SELFPAY ==
--- NOTE | ~2024-12-06 | XR_ITS ---
EXAMINATION: XR CERVICAL SPINE CLINICAL INFORMATION: pain over upper trapezius into right neck COMPARISON: None available. TECHNIQUE: 3 views of the cervical spine were obtained. FINDINGS: There is no scoliosis. There is normal lordosis. There is no subluxation. The C1-2 articulation and craniocervical junction are intact and aligned. There is no fracture, compression deformity, or suspicious bone lesion. There is mild disc degeneration present at C6-7. Disc spaces otherwise preserved. The facets are normally aligned bilaterally. No facet subluxation. Prevertebral soft tissues are normal. XR/XR cervical spine 3V IMPRESSION: 1. No acute findings of the cervical spine. 2. Mild degenerative disc disease at C6-7. Electronically signed by: Mitchel Belle MD 12/06/2024 04:18 PM EDT
--- OUTSIDE RECORDS SUMMARY | 2024-12-06 15:06 | XMS_ITS | Encounter Summary ---
Author Organization [employer] Address [address] [facility] [address] [place] [address] Care Team Providers Care Global Security Architect Name Role Phone Faiza Parra MD Primary Care Provider [phone] Reason for Visit * Reason Comments Med Change Request Encounter Details Date Type Department Care Team ([facility] Contact Info) Description 02/22/2023 Refill [facility] [address] [place] [address] Alexandro Alicia MD [address] [place] [address] Social History Tobacco Use Types Packs/Day Years Used Date Smoking Tobacco: Former Cigarettes Smokeless Tobacco: Former Housing Stability Answer Date Recorded What is your housing situation today? I have janinalandy molina 02/19/[address] you [...] as of this encounter Plan of Treatment Upcoming Encounters Date Type Department Care Team (Late st Contact Info) Description 12/06/2024 3:40 PM EDT Office Visit [facility] [address] [place] [address] Neck muscle spasm (Primary Dx) documented as of this encounter Visit Diagnoses Not on filedocumented in this encounter Care Teams Global Security Architect Relationship Specialty Start Date End Date Faiza Parra MD [address] [place] [id number] PCP - General Family Medicine 05/09/13 documented as of this encounter
--- OUTSIDE RECORDS SUMMARY | 2024-12-06 15:06 | XMS_ITS | Clinical Summary ---
Author Organization [facility] ity Address [address] [place] [address] Care Team Providers Care Supervisor [employer] Name Role Phone Unavailable Primary Care Provider Unavailabl e Social History Tobacco Use Types Packs/Day Years Used Date Smoking Tobacco: Never Assessed Comments Unknown Sex and Gender Information Value Date Recorded Sex Assigned at Not on file Legal Sex Female 6:17 PM EST Gender Identity Not on file Sexual Orientation Not on file Plan of Treatment Health Maintenance Due Date Last Done Comments Breast Cancer Screening 1970 DTaP,Tdap,and Td Vaccines (1 - Tdap) 1989 Hepatitis B Vaccines (1 of 3 - 19+ 3-dose series) 1989 Cervical Cancer Screening: P ap Smear 1991 Pneumococcal Vaccine: 50+ Ye ars (1 of 1 - PCV) 2020 Zoster Vaccines (1 of 2) 2020 Colorectal Cancer Screening: Colonoscopy 04/03/2022 HIV Screening 04/03/2022 Hepatitis C Screening 04/03/2022 Social Influencers of Health Screening 04/03/2022 COVID-19 Vaccine (1 - 2023-2 5 season) 2024 Depression Screening 05/02/2024 Influenza Vaccine (#1) 2024 HIB Vaccines Aged [...] patient's age to complete this topic Meningococcal B Vaccine Aged Out No l onger eligible based on patient's age to complete this topic RSV Immunization Patients Un eliz 20 months Aged Out No longer eligible b ased on patient's age to complete this topic Varicella Vaccines Aged Out No longer eligible based on patient's age to complete this topic Advance Directives Documents on File Type Date Recorded Patient Screen Printer Helper Expl anation Health Care Decision (hx) 09/09/2016 AD CASTRO DIRECTIVE Health Care Decision (hx) 09/09/2016 AD CASTRO DIRECTIVE Health Care Decision (hx) 09/09/2016 AD CASTRO DIRECTIVE Health Care Decision (hx) 09/09/2016 AD CASTRO DIRECTIVE
== END 2024-12-06 15:05 | disposition home or self-care (01) ==
LOC: HO.HHCX 15:04
PROVIDERS: Visit Provider Family Medicine
DX: M62.838 Other muscle spasm (principal); M54.2 Cervicalgia
CPT/HCPCS: 72040

== ENCOUNTER → 2024-12-06 15:04 | Outpatient (BNV) | payer MEDICAID, SELFPAY | PROVIDERS: Visit Provider Radiology Diagnostic Radiology | DX: M50.323 Other cervical disc degeneration at C6-C7 level (principal) | CPT/HCPCS: 72040 ==